=== PATIENT | male | born 1975 | race Caucasian/White ===

== ENCOUNTER → 2017-02-14 | Outpatient (CLI) | payer MEDICARE, MEDICAID ==
[~2017-02-14] MED LIST: ACET-784 PO; CALC500T62 PO; CARB200T6 PO; DIAZ2 PO; ESOM20SU GT; MULT1TAB70 PO; NIZO215C TP; PHEN30TA41 PO; SENN-30 PO
== END | disposition home or self-care (01) ==
LOC: RADPV 10:03
PROVIDERS: ATTEND Family Medicine
DX: M81.0 Age-related osteoporosis without current pathological fracture (principal); I42.9 Cardiomyopathy, unspecified
CPT/HCPCS: 77080; 93005

== ENCOUNTER → 2021-02-08 | Outpatient (CLI) | payer MEDICARE, MEDICAID ==
[~2021-02-08] MED LIST changes: +SENN-277 PO; -SENN-30 PO
== END | disposition home or self-care (01) ==
LOC: RADMN 10:24
PROVIDERS: ATTEND Family Medicine
DX: N20.0 Calculus of kidney (principal); J98.4 Other disorders of lung
CPT/HCPCS: 74176

== ENCOUNTER 2023-01-02 06:17 | Day surgery (SDC) | payer OTHER, MEDICARE, MEDICAID ==
[~2023-01-02] VITALS: Ht 157.5 cm; Wt 65.0 kg
[~2023-01-02 06:17] MED LIST changes: -ACET-784 PO; +ALEN70TA80 GT; +AMIN30LI28 GT; +ASPI-1450 PO; +ATOR10TA69 GT; +BACL10TA GT; -CALC500T62 PO; +CARB200T6 GT; -CARB200T6 PO; +CHOL200059 GT; -DIAZ2 PO; +DOCU-350 GT; -ESOM20SU GT; +FOLI-130 GT; +GARL600T2 GT; +IPRA6S NASAL; +METO25 GT; +MULT-711 GT; -MULT1TAB70 PO; -NIZO215C TP; +PHEN16.22 GT; -PHEN30TA41 PO; +PHEN64.82 GT; +POLY17PO47 GT; +SENN-187 GT; -SENN-277 PO
[2023-01-02] MEDS ORDERED: LIDOCAINE/PF 2% 5 ML VIAL IM ONE (06:18)
[2023-01-02] MEDS ORDERED: ROCURONIUM BROMIDE 10 MG/ML 5 ML VIAL IVP ONE (06:18)
[2023-01-02] MEDS ORDERED: DEXAMETHASONE SOD PHOS 4 MG/ML VIAL IVP ONE (06:18)
[2023-01-02] MEDS ORDERED: PROPOFOL 1% 20 ML VIAL IVP ONE (06:18)
[2023-01-02] MEDS ORDERED: ONDANSETRON HCL 4 MG/2 ML VIAL IVP ONE (06:18)
[2023-01-02] MEDS ORDERED: RINGERS SOLUTION,LACTATED 1,000 ML IV ONE ×2 (06:30→06:35)
[2023-01-02 08:00] LABS: BAND NEUTROPHILS % (MANUAL) 0 % (0-5)
[2023-01-02 08:03] LABS: HEMATOCRIT 42.2 % (41-53); MEAN CORPUSCULAR HEMOGLOBIN 32.6 pg (26.0-34.0); MEAN CORPUSCULAR HGB CONC 33.2 G/dL (31.0-37.0); MEAN CORPUSCULAR VOLUME 98 fL (80-100); PLATELET COUNT (AUTO) 184 K/uL (150-450); RED BLOOD CELL COUNT(AUTO) 4.31 MIL/uL (4.50-5.90); RED CELL DISTRIBUTION WIDTH 12.9 % (11.5-14.5)
[2023-01-02 08:10] LABS: ANION GAP 6 mmol/L (8-16); CALCIUM, TOTAL 9.3 mg/dL (8.8-10.5); CARBON DIOXIDE 27 mmol/L (22-29); CHLORIDE 103 mmol/L (98-107); CREATININE 0.43 mg/dL (0.60-1.30); GLOMERULAR FILTR. RATE CALC > 60 mL/min (>60); GLUCOSE,RANDOM 99 mg/dL (70-110); POTASSIUM 4.2 mmol/L (3.5-5.1); SODIUM SERUM 136 mmol/L (136-145); UREA NITROGEN, BLOOD 19 mg/dL (7-18)
[2023-01-02] MEDS ORDERED: AMPICILLIN SODIUM 2 GM/NS 100 ML IV ONE (08:16)
[2023-01-02 08:20] LABS: PROTHROMBIN TIME 10.9 SEC (9.4-11.6)
[2023-01-02 08:26] LABS: ALANINE AMINOTRANSFERASE 38 U/L (12-78); ALKALINE PHOSPHATASE 235 U/L (46-116); ASPARTATE AMINOTRANSFERASE 20 U/L (15-37); BILIRUBIN,TOTAL 0.2 mg/dL (0.1-1.0); TOTAL PROTEIN, SERUM 8.1 g/dL (6.4-8.2)
[2023-01-02 08:37] LABS: BASOPHILS % (MANUAL) 1 % (0-2); LYMPHOCYTES % (MANUAL) 33 % (22-44); MONOCYTES % (MANUAL) 5 % (2-9); REACTIVE LYMPHOCYTES 1 % (0-0); SEGMENTED NEUTROPHILS % 60 % (40-70)
[2023-01-02] MEDS ORDERED: AMPICILLIN SODIUM 2 GM/NS 100 ML BAG IV ONE (10:35)
[2023-01-02] MEDS ORDERED: SUGAMMADEX SODIUM 200 MG/2 ML VIAL IVP ONE (10:52)
== END 2023-01-02 13:00 | disposition home or self-care (01) ==
LOC: SURGERY 06:17
PROVIDERS: ATTEND Dentist General Practice
DX: K05.30 Chronic periodontitis, unspecified (principal); K02.9 Dental caries, unspecified; K03.6 Deposits [accretions] on teeth; G40.909 Epilepsy, unspecified, not intractable, without status epilepticus; F41.9 Anxiety disorder, unspecified; I11.0 Hypertensive heart disease with heart failure; G47.33 Obstructive sleep apnea (adult) (pediatric); K59.00 Constipation, unspecified; M81.0 Age-related osteoporosis without current pathological fracture; G80.9 Cerebral palsy, unspecified; Z79.01 Long term (current) use of anticoagulants; Z79.899 Other long term (current) drug therapy; I50.9 Heart failure, unspecified
CPT/HCPCS: 41899; 71045; 80053; 85007; 85027; 85610; 85730; 36415; 93005; J0290; J2704; J1100; J3490 ×2; J2405; Q9967; J7120

== ENCOUNTER 2024-08-26 10:11 | Inpatient (IN) | payer MEDICARE, OTHER ==
[~2024-08-26] VITALS: Ht 154.9 cm; Wt 68.9 kg
[~2024-08-26 10:11] MED LIST changes: -DOCU-350 GT; +DOCU-412 GT; +IPRA15SP4 NASAL; -IPRA6S NASAL; -SENN-187 GT; +SENN-376 GT
[2024-08-26 11:20] LABS: BASOPHILS % (AUTO) 0.2 % (0.0-2.0); EOSINOPHILS % (AUTO) 0.5 % (1.0-6.0); HEMATOCRIT 41.9 % (41-53); HEMOGLOBIN 14.3 g/dL (13.5-17.5); LYMPHOCYTES # (AUTO) 0.6 K/uL (1.0-4.8); LYMPHOCYTES % (AUTO) 6.5 % (22.0-44.0); MEAN CORPUSCULAR HEMOGLOBIN 33.8 pg (26.0-34.0); MEAN CORPUSCULAR HGB CONC 34.2 G/dL (31.0-37.0); MEAN CORPUSCULAR VOLUME 99 fL (80-100); MONOCYTES # (AUTO) 0.5 K/uL (0.1-1.0); MONOCYTES % (AUTO) 6.1 % (2.0-9.0); NEUTROPHILS # (AUTO) 7.7 K/uL (1.8-7.7); PLATELET COUNT (AUTO) 173 K/uL (150-450); RED BLOOD CELL COUNT(AUTO) 4.24 MIL/uL (4.50-5.90); RED CELL DISTRIBUTION WIDTH 13.8 % (11.5-14.5); WHITE BLOOD COUNT (AUTO) 8.9 K/uL (4.5-11.0)
[2024-08-26 11:27] LABS: NEUTROPHILS % (AUTO) 86.7 % (40.0-70.0)
[2024-08-26 11:29] LABS: ANION GAP 8 mmol/L (8-16); CALCIUM, TOTAL 9.3 mg/dL (8.8-10.5); CARBON DIOXIDE 29 mmol/L (22-29); CHLORIDE 104 mmol/L (98-107); CREATININE 0.51 mg/dL (0.60-1.30); GLOMERULAR FILTR. RATE CALC > 60 mL/min (>60); GLUCOSE,RANDOM 98 mg/dL (70-110); POTASSIUM 4.1 mmol/L (3.5-5.1); SODIUM SERUM 141 mmol/L (136-145); UREA NITROGEN, BLOOD 19 mg/dL (7-18)
[2024-08-26 11:36] LABS: COVID AG,FIA SOURCE NASAL SWAB
[2024-08-26 11:39] LABS: TROPONIN I-HIGH SENSITIVITY 8 ng/L (<76)
[2024-08-26 12:25] LABS: INFLUENZA TYPE A NEGATIVE FOR TYPE A (NEGATIVE); INFLUENZA TYPE B NEGATIVE FOR TYPE B (NEGATIVE)
[2024-08-26 12:41] LABS: APPEARANCE,URINE HAZY (CLEAR); BILIRUBIN,URINE NEGATIVE (NEGATIVE); COLOR,URINE LIGHT YELLOW (YELLOW); GLUCOSE, URINE (UA) NEGATIVE (NEGATIVE); KETONES,URINE NEGATIVE (NEGATIVE); LEUKOCYTE ESTERASE ,URINE NEGATIVE (NEGATIVE); NITRATE,URINE NEGATIVE (NEGATIVE); OCCULT BLOOD,URINE NEGATIVE (NEGATIVE); PH,URINE 7.5 (5.0-8.0); PH,URINE DRUG SCREEN 7.5 (5.0-8.0); PROTEIN,URINE NEGATIVE (NEGATIVE); SPECIFIC GRAVITIY, URINE 1.015 (1.003-1.030); UROBILINOGEN,URINE <=1.0 mg/dL (<=1.0)
[2024-08-26 12:49] LABS: AMPHET/METH SCREEN,URINE NEGATIVE (NEGATIVE); BARBITURATE SCREEN, URINE POSITIVE (NEGATIVE); BENZODIAZEPINES SCREEN,URINE POSITIVE (NEGATIVE); CANNABINOID SCREEN,URINE NEGATIVE (NEGATIVE); COCAINE SCREEN,URINE NEGATIVE (NEGATIVE); METHADONE SCREEN, URINE NEGATIVE (NEGATIVE); OPIATE SCREEN,URINE NEGATIVE (NEGATIVE); PHENCYCLIDINE SCREEN,URINE NEGATIVE (NEGATIVE)
[2024-08-26 12:50] LABS: ALCOHOL, URINE DRUG SCREEN NEGATIVE (NEGATIVE)
[2024-08-26 13:02] LABS: SARS-COV2 (COVID) ANTIGEN,FIA Negative (Negative)
[2024-08-26] MEDS: LevETIRAcetam 1,000 MG in DEXTROSE 5%-WATER 100 ML IV ONE (14:28)
[2024-08-26] MEDS ORDERED: LORazepam 2 MG/ML VIAL IVP PRN (15:00)
[2024-08-26] MEDS ORDERED: BISACODYL 10 MG RECTAL RECTAL SUPPOSITORY PR PRN (15:00)
[2024-08-26] MEDS ORDERED: ONDANSETRON HCL 4 MG/2 ML VIAL IVP PRN (15:00)
[2024-08-26] MEDS ORDERED: ACETAMINOPHEN 650 MG/20.3 ML SOLUTION UDCUP PEG PRN (15:00)
[2024-08-26] MEDS: SODIUM CHLORIDE 0.9% 1,000 ML IV ONE (15:28)
[2024-08-26] MEDS: HEPARIN SODIUM,PORCINE 5,000 UNITS/ML VIAL SQ SCH (15:28)
[2024-08-26 18:50] VITALS: BP 126/82; PULSE 114; RESP 16; TEMP 97.9; O2SAT 100
[2024-08-26] MEDS: DOCUSATE SODIUM 100 MG/10 ML LIQUID UDCUP PEG SCH (20:28)
[2024-08-26] MEDS: PHENOBARBITAL 30 MG/7.5 ML PEG SCH (20:29)
[2024-08-26] MEDS: LevETIRAcetam 100 MG/ML 5 ML SOLUTION UDCUP PEG SCH (20:29)
[2024-08-26] MEDS: UDCUP PEG SCH (20:29)
[2024-08-26] MEDS: CARBAMAZEPINE 200 MG/10 ML PEG SCH (20:30)
[2024-08-26 23:35] VITALS: BP 119/73; PULSE 110; RESP 18; TEMP 98; O2SAT 100
[2024-08-27 04:01] VITALS: BP 106/60; PULSE 106; RESP 17; TEMP 98.1; O2SAT 95
[2024-08-27 08:00] VITALS: BP 116/71; PULSE 101; RESP 18; TEMP 98.1; O2SAT 92
[2024-08-27] MEDS: PANTOPRAZOLE SODIUM 40 MG/VIAL IVP SCH (09:16)
[2024-08-27 12:27] VITALS: BP 113/55; PULSE 102; RESP 17; TEMP 98.3; O2SAT 93
[2024-08-27 20:29] VITALS: BP 101/58; PULSE 92; RESP 17; TEMP 98.4; O2SAT 94
[2024-08-27] MEDS: DEXTROSE 5%-LACTATED RINGERS 1,000 ML IV ONE (22:18)
[2024-08-27 23:02] VITALS: PULSE 103; O2SAT 96
[2024-08-28] VITALS (7 sets, daily range): BP systolic 111–131; BP diastolic 65–73; PULSE 73–105; RESP 17–19; TEMP 98–98.8; O2SAT 94–99
[2024-08-28] MEDS: DEXTROSE 5%-0.9% SODIUM CHL 1,000 ML IV ONE (11:08)
[2024-08-28 11:29] LABS: BASOPHILS % (AUTO) 0.8 % (0.0-2.0); EOSINOPHILS % (AUTO) 0.6 % (1.0-6.0); HEMATOCRIT 34.3 % (41-53); HEMOGLOBIN 11.6 g/dL (13.5-17.5); LYMPHOCYTES # (AUTO) 1.4 K/uL (1.0-4.8); MEAN CORPUSCULAR HEMOGLOBIN 33.6 pg (26.0-34.0); MEAN CORPUSCULAR HGB CONC 33.8 G/dL (31.0-37.0); MEAN CORPUSCULAR VOLUME 99 fL (80-100); MONOCYTES # (AUTO) 0.6 K/uL (0.1-1.0); MONOCYTES % (AUTO) 12.2 % (2.0-9.0); NEUTROPHILS # (AUTO) 3.1 K/uL (1.8-7.7); NEUTROPHILS % (AUTO) 59.4 % (40.0-70.0); PLATELET COUNT (AUTO) 158 K/uL (150-450); RED BLOOD CELL COUNT(AUTO) 3.46 MIL/uL (4.50-5.90); WHITE BLOOD COUNT (AUTO) 5.2 K/uL (4.5-11.0)
[2024-08-28 11:50] LABS: ANION GAP 8 mmol/L (8-16); CALCIUM, TOTAL 8.7 mg/dL (8.8-10.5); CARBON DIOXIDE 26 mmol/L (22-29); CHLORIDE 111 mmol/L (98-107); CREATININE 0.46 mg/dL (0.60-1.30); GLOMERULAR FILTR. RATE CALC > 60 mL/min (>60); GLUCOSE,RANDOM 103 mg/dL (70-110); POTASSIUM 3.5 mmol/L (3.5-5.1); SODIUM SERUM 145 mmol/L (136-145); UREA NITROGEN, BLOOD 8 mg/dL (7-18)
[2024-08-28] MEDS ORDERED: DIATRIZOATE MEGLU/SOD 660/100 MG/ML 120 ML BOTTLE ONE (12:14)
[2024-08-29 03:35] VITALS: BP 136/63; PULSE 83; RESP 18; TEMP 98.7; O2SAT 95
[2024-08-29 08:38] VITALS: BP 95/56; PULSE 69; RESP 17; TEMP 98; O2SAT 95
[2024-08-29 11:12] VITALS: BP 89/55; PULSE 67; RESP 18; TEMP 98.2; O2SAT 97
[2024-08-29] MEDS: SODIUM CHLORIDE 0.9% 500 ML IV ONE (11:30)
[2024-08-29 15:15] VITALS: BP 94/55; PULSE 60; RESP 19; TEMP 97.5; O2SAT 95
== END 2024-08-29 16:40 | disposition home or self-care (01) | DRG 100 ==
LOC: EMS 10:12 → EDH 14:54 → 5S 18:45
PROVIDERS: ADMIT Internal Medicine; ATTEND Internal Medicine
DX: G40.909 Epilepsy, unspecified, not intractable, without status epilepticus (principal); R53.2 Functional quadriplegia; R13.10 Dysphagia, unspecified; R62.7 Adult failure to thrive; G80.8 Other cerebral palsy; Z20.822 Contact with and (suspected) exposure to COVID-19; G93.89 Other specified disorders of brain; I50.9 Heart failure, unspecified; Z66 Do not resuscitate; F17.200 Nicotine dependence, unspecified, uncomplicated; Z79.82 Long term (current) use of aspirin; Z79.899 Other long term (current) drug therapy; Z68.28 Body mass index [BMI] 28.0-28.9, adult
CPT/HCPCS: 51701; 70450; 71045; 74018; 74019; 80048; 80156; 80184; 80307; 81003; 84484; 85025; 87081; 87804; 93005; 99285; G0482; J0712; J1644; J2470; J7030; J7042; J7060; 36415-L1; 36415-TC